=== PATIENT | female | born 1975 | race Caucasian/White ===

== ENCOUNTER → 2019-02-22 07:50 | Outpatient (CLI) | payer OTHER, SELFPAY | DX: Z23 Encounter for immunization (principal) | CPT/HCPCS: 90471; 90686 ==

== ENCOUNTER → 2020-12-29 10:15 | Outpatient (CLI) | payer OTHER, SELFPAY ==
[2020-12-29 13:59] LABS: COVID19 -Nasal RAPID POSITIVE (Negative)
== END ==
PROVIDERS: Visit Provider Physician Assistant
DX: U07.1 COVID-19 (principal)
CPT/HCPCS: 87635

== ENCOUNTER → 2022-10-20 14:29 | Outpatient (CLI) | payer OTHER, SELFPAY ==
--- NOTE | 2022-10-20 | DI.MG.S_ITS ---
BILATERAL DIGITAL SCREENING MAMMOGRAM 3D/2D WITH CAD: 10/20/2022 CLINICAL: Routine screening. Comparison is made to exams dated: 10/14/2021 mammogram, 06/03/2020 mammogram - [facility], and 06/29/2016 mammogram - [facility]. Both breasts are heterogeneously dense, which may obscure small masses (category c / 51-75% glandular tissue). Current study was also evaluated with a Computer Aided Detection (CAD) system. No significant masses, calcifications, or other findings are seen in either breast. There has been no significant interval change. IMPRESSION: NEGATIVE There is no mammographic evidence of malignancy. A 1 year screening mammogram is recommended. Based on the Tyrer Cuzick model (a risk assessment model) the patient's lifetime risk is 14.6% and her 10 year risk is 2.9%. According to the ACR, ACS, and NCCN guidelines, an annual breast MRI exam along with mammogram is recommended if the patient's lifetime risk is 20% or greater. This exam was interpreted at Station ID: [id number]. NOTE: For mammograms, a report in lay terms will be sent to the patient. Approximately 15% of breast malignancies will not be visualized mammographically. In the management of a palpable breast mass, a negative mammogram must not discourage biopsy of a clinically suspicious lesion. Electronically Signed By: Arvin farrar/zehra:10/20/2022 16:51:39 letter sent: Normal Exam ACR BI-RADS Category 1: Negative [id number]
== END ==
PROVIDERS: PCP Internal Medicine; Referring Provider Internal Medicine; Visit Provider Internal Medicine
DX: Z12.31 Encounter for screening mammogram for malignant neoplasm of breast (principal)
CPT/HCPCS: 77063; 77067

== ENCOUNTER → 2023-05-10 06:49 | Outpatient (CLI) | payer OTHER, SELFPAY ==
--- NOTE | 2023-05-10 06:50 | DI.US.S_ITS ---
PROCEDURE: US PELVIC COMPLETE INDICATIONS: MENORRHAGIA W/IRREGULAR CYCLE. LUMP LAT OF RT LABIA MAJORA. TECHNIQUE: Real-time scanning was performed of the pelvic organs, with image documentation. Additional endovaginal scanning was necessary due to incomplete visualization of the adnexal and endometrial structures by transabdominal scanning. COMPARISON: None. FINDINGS: Uterus: Uterus is anteverted and normal in size at 8.4 x 5.2 x 3.4 cm. The endometrium measures 4 point mm combined thickness. There is a focus of complex echogenicity measuring 6 x 6 by mm. Ovaries: The right ovary measures 3.4 x 2.2 x 1.8 cm, with a calculated ovarian volume of 7.3 cc. The left ovary measures 2.5 x 1.6 x 2.0 cm, with a calculated ovarian volume of 3.9 cc. The ovaries have a normal sonographic appearance. Less than 12 follicles can be seen in each ovary. No adnexal masses are seen. Other: There focus of decreased echogenicity within the subcutaneous tissues of the right lateral aspect of the labia majora measuring 9 x 3 x 6 mm. This appears to have a small tract to skin. IMPRESSION: Decreased echogenicity within the subcutaneous tissues the labia majora extending to the skin surface nonspecific. This could represent a small sebaceous cyst, infection or inflammation such as developing abscess. Other etiologies cannot be excluded and direct visualization is recommended. Cluster of echogenic foci within the endometrium which could represent small cysts. We strive to produce accurate, complete, and clear reports of imaging services. To assist us in improving patient care, this report was composed using standard report templates and voice recognition software. Therefore, it may contain abnormal punctuation, insertions and/or omissions. Occasional wrong-word or sound-alike substitutions may occur. Though we review the report and make efforts to correct it, we do recommend that the report be read carefully in proper context to recognize any text inaccuracies. Dictated by: Tonya Encarnacion M.D. on 05/10/2023 at 9:59 Approved by: Tonya Encarnacion M.D. on 05/10/2023 at 10:02
== END ==
LOC: US 06:49
PROVIDERS: PCP Internal Medicine; Referring Provider Internal Medicine; Visit Provider Internal Medicine
DX: N92.1 Excessive and frequent menstruation with irregular cycle (principal); Z97.5 Presence of (intrauterine) contraceptive device
CPT/HCPCS: 76830; 76856

== ENCOUNTER → 2023-05-25 07:55 | Outpatient (CLI) | payer OTHER, SELFPAY ==
--- NOTE | 2023-05-25 07:57 | DI.RAD.S_ITS ---
PROCEDURE: XR FINGER RT MIN 2V INDICATIONS: THUMB PAIN TECHNIQUE: AP hand, 2 views of the 1st finger(s) acquired. COMPARISON: None. FINDINGS: Bones: Transverse fracture through 1st distal phalangeal base is seen without significant displacement or angulation at fracture site. No other fracture or dislocation is seen. No suspicious bony lesions. Soft tissues: Mild soft tissue swelling surrounding 1st interphalangeal joint is seen. No suspicious soft tissue calcifications. IMPRESSION: Nondisplaced transverse fracture through 1st distal phalangeal base. Dictated by: Sebas Barajas M.D. on 05/25/2023 at 12:05 Approved by: Sebas Barajas M.D. on 05/25/2023 at 12:18
== END ==
LOC: RAD 07:56
PROVIDERS: PCP Internal Medicine; Referring Provider Family Medicine; Visit Provider Family Medicine
DX: S62.524A Nondisplaced fracture of distal phalanx of right thumb, initial encounter for closed fracture (principal); X58.XXXA Exposure to other specified factors, initial encounter
CPT/HCPCS: 73140

== ENCOUNTER → 2024-04-18 14:04 | Outpatient (CLI) | payer OTHER, SELFPAY ==
--- NOTE | 2024-04-18 14:06 | DI.MG.S_ITS ---
BILATERAL DIGITAL SCREENING MAMMOGRAM 3D/2D WITH CAD: 04/18/2024 CLINICAL: Routine screening. Comparison is made to exams dated: 10/20/2022 mammogram - [facility], 10/14/2021 mammogram, and 06/03/2020 mammogram - [facility]. The breasts are heterogeneously dense, which may obscure small masses (category c / 51-75% glandular tissue). Current study was also evaluated with a Computer Aided Detection (CAD) system. No significant masses, calcifications, or other findings are seen in either breast. There has been no significant interval change. IMPRESSION: NEGATIVE There is no mammographic evidence of malignancy. A 1 year screening mammogram is recommended. Based on the Tyrer Cuzick model (a risk assessment model) the patient's lifetime risk is 13.6% and her 10 year risk is 2.8%. According to the ACR, ACS, and NCCN guidelines, an annual breast MRI exam along with mammogram is recommended if the patient's lifetime risk is 20% or greater. This exam was interpreted at Station ID: [id number]. NOTE: For mammograms, a report in lay terms will be sent to the patient. Approximately 15% of breast malignancies will not be visualized mammographically. In the management of a palpable breast mass, a negative mammogram must not discourage biopsy of a clinically suspicious lesion. Electronically Signed By: Steph Clark M.D., Ph.D. ciera/zehra:04/19/2024 20:01:11 letter sent: Normal Exam ACR BI-RADS Category 1: Negative
== END ==
LOC: MAMMO 14:06
PROVIDERS: PCP Internal Medicine; Referring Provider Internal Medicine; Visit Provider Internal Medicine
DX: Z12.31 Encounter for screening mammogram for malignant neoplasm of breast (principal); R92.333 Mammographic heterogeneous density, bilateral breasts
CPT/HCPCS: 77063; 77067

== ENCOUNTER → 2024-12-03 07:59 | Outpatient (CLI) | payer OTHER, SELFPAY ==
--- NOTE | 2024-12-03 | DI.RAD.S_ITS ---
PROCEDURE: XR ANKLE RT 2V INDICATIONS: Acute right ankle pain TECHNIQUE: 2 views of the ankle were acquired. COMPARISON: None. FINDINGS: Bones: No fractures or dislocations. Ankle mortise is normally aligned. No suspicious bony lesions. Soft tissues: No tibiotalar joint effusion. Achilles tendon appears normal. IMPRESSION: Lateral malleolar soft tissue swelling without underlying fracture or dislocation. If there are persistent symptoms or clinical suspicion for pathology, then repeat radiographs or advanced imaging (CT or MRI) may be considered for further evaluation. Dictated by: León Rose M.D. on 12/03/2024 at 18:05 Approved by: León Rose M.D. on 12/03/2024 at 18:06
== END ==
PROVIDERS: PCP Internal Medicine; Referring Provider Family Medicine; Visit Provider Family Medicine
DX: M25.571 Pain in right ankle and joints of right foot (principal); M79.89 Other specified soft tissue disorders
CPT/HCPCS: 73600